=== PATIENT | female | born 1990 | race Caucasian/White ===

== ENCOUNTER 2024-04-05 12:56 | Outpatient (CLI) | payer OTHER | END 2024-04-05 13:44 | disposition home or self-care (01) | LOC: NST 12:56 | PROVIDERS: ATTEND Obstetrics & Gynecology Maternal & Fetal Medicine | DX: Z34.83 Encounter for supervision of other normal pregnancy, third trimester (principal) ==

== ENCOUNTER 2024-04-18 16:49 | Outpatient (CLI) | payer OTHER | END 2024-04-18 17:40 | disposition home or self-care (01) | LOC: NST 16:49 | PROVIDERS: ATTEND Obstetrics & Gynecology Maternal & Fetal Medicine | DX: Z34.83 Encounter for supervision of other normal pregnancy, third trimester (principal) ==

== ENCOUNTER 2024-04-25 15:13 | Outpatient (CLI) | payer OTHER | END 2024-04-25 15:15 | disposition home or self-care (01) | LOC: NUCLEAR 15:13 | PROVIDERS: ATTEND Obstetrics & Gynecology | DX: I82.409 Acute embolism and thrombosis of unspecified deep veins of unspecified lower extremity (principal) ==

== ENCOUNTER 2024-04-27 13:41 | Outpatient (CLI) | payer OTHER | END 2024-04-27 14:57 | disposition home or self-care (01) | LOC: NST 13:41 | PROVIDERS: ATTEND Obstetrics & Gynecology Maternal & Fetal Medicine | DX: Z34.83 Encounter for supervision of other normal pregnancy, third trimester (principal) ==

== ENCOUNTER → 2024-05-01 | Outpatient (CLI) | payer OTHER | END | disposition home or self-care (01) | LOC: NST 09:58 | PROVIDERS: ATTEND Obstetrics & Gynecology Maternal & Fetal Medicine | DX: Z34.83 Encounter for supervision of other normal pregnancy, third trimester (principal) ==

== ENCOUNTER 2024-05-04 09:59 | Outpatient (CLI) | payer OTHER | END 2024-05-04 10:45 | disposition home or self-care (01) | LOC: NST 09:59 | PROVIDERS: ATTEND Obstetrics & Gynecology Maternal & Fetal Medicine | DX: Z34.83 Encounter for supervision of other normal pregnancy, third trimester (principal) ==

== ENCOUNTER 2024-05-08 09:53 | Outpatient (CLI) | payer OTHER ==
[2024-05-09] MEDS ORDERED: PRENATAL TABLE1 EAC4 PO (15:07)
[2024-05-09] MEDS ORDERED: SYNTHROID112 MCG PO (15:07)
== END 2024-05-08 11:18 | disposition home or self-care (01) ==
LOC: NST 09:53
PROVIDERS: ATTEND Obstetrics & Gynecology
DX: Z34.83 Encounter for supervision of other normal pregnancy, third trimester (principal)

== ENCOUNTER 2024-05-09 11:57 | Inpatient (IN) | payer OTHER ==
[~2024-05-09] VITALS: Ht 154.9 cm; Wt 2.3 kg
[2024-05-09 14:53] VITALS: BP 129/75
[2024-05-09] MEDS ORDERED: PRENATAL TABLE1 EAC4 PO (15:07)
[2024-05-09] MEDS ORDERED: SYNTHROID112 MCG PO (15:07)
[2024-05-09] MEDS ORDERED: RINGERS SOLUTION,LACTATED 1,000 ML IV SCH (15:30)
[2024-05-09 15:43] VITALS: BP 122/69
[2024-05-09 15:49] LABS: HEMOGLOBIN 12.8 g/dL (12.0-15.00); MEAN CELL VOLUME 94.1 fL (80.00-100.00); MEAN CORPUSCULAR HEMOGLOBIN 31.7 pg (27.00-32.0); MEAN CORPUSCULAR HGB CONC 33.7 g/dl (32.0-36.0); PLATELET COUNT 285 K/uL (150-450); RED BLOOD COUNT 4.04 M/uL (4.00-6.00); RED CELL DISTRIBUTION WIDTH 14.4 % (11.5-14.5)
[2024-05-09 16:07] LABS: INR < 0.93; PARTIAL THROMBOPLASTIN TIME 22.6 SECONDS (22.0-34.0); PROTHROMBIN TIME 9.8 SECONDS (9.0-11.5)
[2024-05-09 16:09] LABS: ALBUMIN 2.5 gm/dL (3.4-5.0); BILIRUBIN TOTAL 0.22 mg/dL (0.3-1.2); CALCIUM 9.4 mg/dL (8.5-10.1); CREATININE SERUM 0.67 mg/dL (0.55-1.02); GFR 101.36; GLOBULINA 3.9 G/DL (2.4-3.5); POTASSIUM 4.17 mEq/L (3.5-5.1); TOTAL PROTEIN 6.4 gm/dL (6.4-8.2)
[2024-05-09] MEDS ORDERED: MISOPROSTOL 25 MCG TABLET VAG ONE (16:15)
[2024-05-09] MEDS ORDERED: MORPHINE SULFATE 4 MG/ML CARTRIDGE IV PRN (16:30)
[2024-05-09 18:40] VITALS: BP 131/78
[2024-05-09 23:22] VITALS: BP 126/73
[2024-05-10 03:26] VITALS: BP 112/65
[2024-05-10] MEDS ORDERED: SYNTHROID 112 MCG PO SCH (06:00)
[2024-05-10 07:32] VITALS: BP 124/77
[2024-05-10] MEDS ORDERED: OXYTOCIN 500 ML IV ONE (08:00)
[2024-05-10] MEDS ORDERED: OXYTOCIN 1,000 ML IV ONE (11:15)
[2024-05-10] MEDS ORDERED: ERYTHROMYCIN BASE OPHT 1GM EACH TUBE OP ONE (11:15)
[2024-05-10] MEDS ORDERED: MORPHINE SULFATE 4 MG/ML CARTRIDGE IV PRN (11:15)
[2024-05-10] MEDS ORDERED: RINGERS SOLUTION,LACTATED 1,000 ML IV SCH (11:15)
[2024-05-10] MEDS ORDERED: ACETAMINOPHEN 500 MG GEL..CAP PO SCH (12:00)
[2024-05-10] MEDS ORDERED: KETOROLAC TROMETHAMINE 30 MG VIAL IV SCH (12:00)
[2024-05-10] MEDS ORDERED: ONDANSETRON HCL 2 MG/ML VIAL IV SCH (12:00)
[2024-05-10 12:30] VITALS: BP 111/73
[2024-05-10 16:00] VITALS: BP 120/80
[2024-05-10] MEDS ORDERED: GABAPENTIN 300 MG CAPSULE PO SCH (17:00)
[2024-05-10] MEDS ORDERED: SIMETHICONE 125 MG CAPSULE PO SCH (17:00)
[2024-05-11 00:28] VITALS: BP 106/71
[2024-05-11 04:00] VITALS: BP 125/77
[2024-05-11 08:00] VITALS: BP 131/84
[2024-05-11] MEDS ORDERED: KETOROLAC TROMETHAMINE 10 MG TABLET PO SCH (08:00)
[2024-05-11] MEDS ORDERED: OxyCODONE HCL 5 MG TABLET (ROXICODONE) PO PRN (08:00)
[2024-05-11 08:15] LABS: HEMATOCRIT 24.5 % (36.0-45.00); MEAN CELL VOLUME 94.3 fL (80.00-100.00); PLATELET COUNT 213 K/uL (150-450); RED CELL DISTRIBUTION WIDTH 14.3 % (11.5-14.5)
[2024-05-11 08:20] LABS: MEAN CORPUSCULAR HEMOGLOBIN 31.9 pg (27.00-32.0)
[2024-05-11 08:21] LABS: HEMOGLOBIN 8.3 g/dL (12.0-15.00)
[2024-05-11] MEDS ORDERED: ENOXAPARIN SODIUM 40 MG/0.4 ML SYRINGE SUBCUTANEO SCH (09:00)
[2024-05-11] MEDS ORDERED: DOCUSATE SODIUM 100MG CAP PO SCH (09:00)
[2024-05-11 18:00] VITALS: BP 122/81
[2024-05-12 01:13] VITALS: BP 142/88
[2024-05-12 07:54] VITALS: BP 136/88
[2024-05-12] MEDS ORDERED: IRON FUM,PS/FOLIC/BCOMP,C NO.9 1 CAP CAPSULE PO SCH (09:00)
[2024-05-12 17:13] VITALS: BP 127/85
[2024-05-12 20:34] VITALS: BP 131/83
[2024-05-13] VITALS: BP 122/80
[2024-05-13 08:18] VITALS: BP 141/88
== END 2024-05-13 16:17 | disposition home or self-care (01) | DRG 788 ==
LOC: OB/GYN 11:57 → LDR 14:20 → O/R 05-10 09:42 → OB/GYN 05-10 11:34
PROVIDERS: ADMIT Obstetrics & Gynecology; ATTEND Obstetrics & Gynecology
PROC: 3E0P7VZ Introduction of Hormone into Female Reproductive, Via Natural or Artificial Opening (ICD-10-PCS; 2024-05-09)
PROC: 4A1HXCZ Monitoring of Products of Conception, Cardiac Rate, External Approach (ICD-10-PCS; 2024-05-09)
PROC: 3E033VJ Introduction of Other Hormone into Peripheral Vein, Percutaneous Approach (ICD-10-PCS; 2024-05-10)
PROC: 10D00Z1 Extraction of Products of Conception, Low, Open Approach (ICD-10-PCS; principal; 2024-05-10 09:30)
DX: O36.8130 Decreased fetal movements, third trimester, not applicable or unspecified (principal); O36.5930 Maternal care for other known or suspected poor fetal growth, third trimester, not applicable or unspecified; Z3A.37 37 weeks gestation of pregnancy; Z37.0 Single live birth; Z20.822 Contact with and (suspected) exposure to COVID-19